=== PATIENT | female | born 1965 | race Native Hawaiian/Other Pacific Islander ===

== ENCOUNTER 2018-07-20 14:05 | Outpatient (CLI) | payer OTHER ==
[2018-07-21] MEDS ORDERED: CODEINE/APAP1 TA1 PO (18:37)
== END 2018-07-20 19:09 | disposition home or self-care (01) ==
LOC: CT 14:05
DX: R10.9 Unspecified abdominal pain (principal)
CPT/HCPCS: 36415; 82565; 84520; Q9963

== ENCOUNTER 2018-07-21 17:24 | Inpatient (IN) | payer OTHER ==
[~2018-07-21] VITALS: Ht 152.4 cm; Wt 74.5 kg
[2018-07-21 18:09] VITALS: BP 147/69; TEMP 98.1; Ht 152.4 cm; Wt 74.5 kg
[2018-07-21 18:11] LABS: PLATELET COUNT 411 K/uL (152-353)
[2018-07-21 18:29] LABS: POTASSIUM 3.8 mmol/L (3.6-5.2)
--- NOTE | 2018-07-21 18:36 | NUR ---
[address] CASTILLO'S CELL PHONE CONCERNING CONSULT
[2018-07-21] MEDS ORDERED: CODEINE/APAP1 TA1 PO (18:37)
[2018-07-21 20:01] VITALS: BP 159/62; TEMP 98.8
[2018-07-22 00:08] VITALS: BP 126/70; TEMP 98.4
[2018-07-22 04:06] VITALS: BP 131/58; TEMP 98.5
[2018-07-22 08:00] VITALS: BP 138/63; TEMP 98.2
[2018-07-22 12:00] VITALS: BP 116/62; TEMP 98.7
[2018-07-22 16:00] VITALS: BP 122/67; TEMP 98.6
[2018-07-22 20:03] VITALS: BP 121/62; TEMP 98.3
[2018-07-23] VITALS: BP 101/58; TEMP 98.1
[2018-07-23 04:00] VITALS: BP 106/52; TEMP 98.2
[2018-07-23 05:28] LABS: PLATELET COUNT 432 K/uL (152-353)
[2018-07-23 05:49] LABS: POTASSIUM 3.9 mmol/L (3.6-5.2)
[2018-07-23 08:12] VITALS: BP 129/57; TEMP 98.6
[2018-07-23 12:00] VITALS: BP 111/60; TEMP 98.6
--- NOTE | 2018-07-23 12:42 | NUR ---
PCT WENT TO WRAP IV SITE SO PT COULD GET A BATH. PT STATED "I DONT WANT A BATH I JUST WANT TO GET SOME REST."
[2018-07-23 16:00] VITALS: BP 122/70; TEMP 98.7
[2018-07-23 20:00] VITALS: BP 126/64; TEMP 98.6
[2018-07-24] VITALS: BP 125/76; TEMP 98.7
[2018-07-24 04:00] VITALS: BP 140/71; TEMP 99.2
[2018-07-24 08:08] VITALS: BP 126/57; TEMP 98.6
--- NOTE | 2018-07-24 11:06 | NUR ---
[address] AT THIS TIME.
[2018-07-24 12:00] VITALS: BP 132/77; TEMP 98.5
[2018-07-24 16:00] VITALS: BP 150/62; TEMP 99.5
--- NOTE | 2018-07-24 17:14 | NUR ---
1700 CALLED TO PT'S ROOM PER PT PT VERY ANXIOUS RESP INCREASED PT NOTED TO BE PACING AROUND THE ROOM. ATTEMPTED TO TALK TO PT AND CALM PT DOWN. PT STATES ONCE AGAIN ITS THE "IV ABX CAUSING ME TO FEEL THIS WAY. I CANT TAKE THEM ANYMORE" EXPLAINED TO PT TO LET ME NOTIFY DR MULLIGAN FOR NEW ORDERS. PT VERBALIZED UNDERSTANDING. 1715 DR MULLIGAN NOTIFIED AND REPORTED CHANGES IN PT'S CONDITION. NEW ORDERS REC'D TO GIVE PRN MEDS AND CHANGE ABX TO PO. WILL EXPLAIN TO PT. [address] PT [address] MULLIGAN WAS NOTIFIED AND NEW ORDERS REC'D. PT THEN TOLD ME SHE DIDNT THINK SYMPTOMS WAS RELATED TO IV ABX. PT REQUESTING NEURONTIN TO BE GIVEN. EXPLAINED I WOULD HAVE TO NOTIFY DR MULLIGAN FOR NEW ORDERS. 1725 NEW ORDERS OBTAINED FOR NEURONTIN
[2018-07-24 20:00] VITALS: BP 146/74; TEMP 98.9
[2018-07-25] VITALS: BP 137/68; TEMP 99.3
[2018-07-25 04:00] VITALS: BP 156/84; TEMP 97.8
[2018-07-25 08:00] VITALS: BP 125/74; TEMP 97.8
--- NOTE | 2018-07-25 11:37 | NUR ---
1140 PT LEFT VIA WC WITH FAMILY. NO ACUTE DISTRESS NOTED.
== END 2018-07-25 11:30 | disposition home or self-care (01) | DRG 392 ==
LOC: MED/SURG 17:24
PROVIDERS: ADMIT Internal Medicine
DX: K57.32 Diverticulitis of large intestine without perforation or abscess without bleeding (principal); I10 Essential (primary) hypertension; F41.8 Other specified anxiety disorders; M54.89 Other dorsalgia; R51 Headache; G62.9 Polyneuropathy, unspecified; R10.9 Unspecified abdominal pain
CPT/HCPCS: 36415; 80053; 81000; 82565; 84520; 85027; 87040; 93005; J0744; J2060; J2270; J2405; J2543; J3490; Q9963